=== PATIENT | male | born 1960 | race Caucasian/White ===

== ENCOUNTER → 2019-03-17 | Outpatient (CLI) | payer OTHER ==
--- NOTE | 2019-03-18 08:51 | XCELERA REPORT ---
[address] [address] Lower Extremity Arterial Evaluation Name: GILLIAN BOYER Age: 59 yrs Gender: Male : 1960 Patient Status: Outpatient Patient Location: [facility] Study Date: 03/17/2019 01:19 PM Procedure: A color flow and duplex scan of the lower extremity arteries was performed on the right with velocity and waveform anaylsis. Reason For Study: RLE ABSCENT PULSES Ordering Physician: ALBERTO GREGORIO Performed By: Jocy Hannah Measurements and Calculations Right Left Prox PFA PSV 34.3 cm/sec Prox SFA PSV 105.9 cm/sec Mid SFA PSV 89.9 cm/sec Dist SFA PSV 104.9 cm/sec Prox Pop A PSV 77.8 cm/sec Prox JAKY PSV 24.1 cm/sec Prox GLOBAL PRESIDENT PSV 86.2 cm/sec Right Side Arterial Evaluation Normal velocity and triphasic waveforms noted from the Common Femoral artery to the infrageniculate vessels . Ankle Brachial index not done. Interpretation Summary No hemodynamically significant lesions in the right lower extremity only, on duplex imaging, at rest. : ALBERTO GREGORIO > Alberto Gregorio
== END ==
LOC: SP 12:22
PROVIDERS: ATTEND Surgery
DX: R09.89 Other specified symptoms and signs involving the circulatory and respiratory systems (principal); R22.43 Localized swelling, mass and lump, lower limb, bilateral
CPT/HCPCS: 93926